=== PATIENT | female | born 1985 | race Caucasian/White ===

== ENCOUNTER 2020-06-17 18:09 | Emergency (ER) | payer MEDICAID, SELFPAY ==
[~2020-06-17] VITALS: Ht 167.6 cm; Wt 72.6 kg
[2020-06-17 18:10] VITALS: BP_SYST 124
== END 2020-06-17 20:38 | disposition home or self-care (01) ==
LOC: SED 18:09
DX: U07.1 COVID-19 (principal); R07.89 Other chest pain; R06.02 Shortness of breath; J45.909 Unspecified asthma, uncomplicated
CPT/HCPCS: 71045; 93005; 99283

== ENCOUNTER 2023-11-23 11:11 | Emergency (ER) | payer MEDICAID ==
[~2023-11-23] VITALS: Ht 152.4 cm; Wt 79.8 kg
[~2023-11-23 11:11] MED LIST: IBUP-1969 PO; ONDA-8 TL
[2023-11-23 11:17] VITALS: BP_SYST 117; PULSE 77; RESP 18; TEMP 97.4; O2SAT 99
[2023-11-23] MEDS ORDERED: prednisoLONE 15 MG/5 ML UDC PO ONE (11:30)
[2023-11-23] MEDS: IPRATROPIUM/ALBUTEROL SULFATE 3 ML AMPUL.NEB (DUONEB) INH ONE (11:52)
[2023-11-23 11:59] LABS: BASOPHILS % (AUTO) 0.6 % (0.0-2.0); EOSINOPHILS # (AUTO) 0.1 K/uL (0.0-0.4); EOSINOPHILS % (AUTO) 1.5 % (0.0-4.0); HEMATOCRIT 37.7 % (36-48); HEMOGLOBIN 13.3 g/dL (12.0-16.0); LYMPHOCYTES # (AUTO) 1.8 K/uL (1.0-5.5); LYMPHOCYTES % (AUTO) 27.6 % (20.5-51.5); MEAN CORPUSCULAR HEMOGLOBIN 32 pg (27-31); MEAN CORPUSCULAR HGB CONC 35 % (32-36); MEAN CORPUSCULAR VOLUME 92 fL (79.0-98.0); MONOCYTES # (AUTO) 0.7 K/uL (0.0-1.0); MONOCYTES % (AUTO) 9.8 % (1.7-9.3); NEUTROPHILS % (AUTO) 60.5 % (40.0-70.0); PLATELET COUNT (AUTO) 253 K/uL (130-430); RED BLOOD CELL COUNT(AUTO) 4.11 MIL/uL (4.2-6.2); WHITE BLOOD COUNT (AUTO) 6.7 K/uL (4.8-10.8)
[2023-11-23] MEDS: predniSONE 20 MG TABLET PO ONE (12:14)
[2023-11-23 12:21] LABS: SERUM HCG (QUALITATIVE) NEGATIVE (NEGATIVE)
[2023-11-23 12:23] LABS: INR 0.9 (0.8-1.2); PROTHROMBIN TIME 9.8 SECS (9.5-12.5)
[2023-11-23 12:29] LABS: ANION GAP 7 (5-15); CALCIUM 8.8 mg/dL (8.4-11.0); CARBON DIOXIDE 26 mmol/L (23-29); CHLORIDE 104 mmol/L (98-107); CREATININE 0.63 mg/dL (0.55-1.30); GFR AFRICAN AMERICAN 137 mL/min (>90); GLUCOSE 85 mg/dL (74-106); SODIUM SERUM 137 mmol/L (136-145); UREA NITROGEN, BLOOD 13 mg/dL (8-21)
[2023-11-23 12:31] LABS: GFR NON AFRICAN-AMERICAN 113 mL/min (>90)
[2023-11-23 12:36] LABS: BILIRUBIN,URINE NEGATIVE (NEGATIVE); BLOOD, URINE NEGATIVE (NEGATIVE); CLARITY/URINE CLEAR (CLEAR); COLOR,URINE YELLOW (YELLOW); GLUCOSE,URINE NEGATIVE (NEGATIVE); KETONES,URINE NEGATIVE (NEGATIVE); LEUKOCYTE ESTERASE ,URINE NEGATIVE (NEGATIVE); NITRITE, URINE NEGATIVE (NEGATIVE); PH,URINE 7.5 (5.0-8.0); PROTEIN URINE NEGATIVE (NEGATIVE); UROBILINOGEN,URINE 0.2 (0.2-1.0)
[2023-11-23] MEDS ORDERED: PRED20TA PO (13:28)
[2023-11-23] MEDS ORDERED: ALBMDI INH (13:28)
[2023-11-23] MEDS ORDERED: DOXY100C5 PO (13:32)
[2023-11-23 14:01] VITALS: BP_SYST 117; PULSE 77; RESP 18; TEMP 97.4; O2SAT 100
== END 2023-11-23 14:01 | disposition home or self-care (01) ==
LOC: SED 11:11
DX: J45.901 Unspecified asthma with (acute) exacerbation (principal); J06.9 Acute upper respiratory infection, unspecified; Z79.899 Other long term (current) drug therapy; Z79.2 Long term (current) use of antibiotics
CPT/HCPCS: 99285; 71045; 80048; 81001; 84703; 85025; 85610; 85730; 84484; 36415; 93005; 94664; J7512; 81003; 94760